=== PATIENT | female | born 1975 | race Caucasian/White ===

== ENCOUNTER 2018-02-12 09:43 | Emergency (ER) | payer SELFPAY ==
[~2018-02-12] VITALS: Ht 160 cm; Wt 73.8 kg
[~2018-02-12 09:43] MED LIST: FLEXERIL10 MG PO; MEDROL DOSEPAK4 MG PO; PERCOCET 5/31 TABLET PO; VALIUM5 MG PO
[2018-02-12] MEDS ORDERED: AUGMENTIN875 MG PO (11:18)
[2018-02-12] MEDS ORDERED: FLONASE16 G1 BOTH NARES (11:18)
[2018-02-12 11:31] VITALS: BP 132/90
== END 2018-02-12 11:42 | disposition home or self-care (01) ==
LOC: EME 09:43
DX: J32.9 Chronic sinusitis, unspecified (principal); H66.91 Otitis media, unspecified, right ear; F17.200 Nicotine dependence, unspecified, uncomplicated
CPT/HCPCS: 99281; 99284